=== PATIENT | male | born 1955 | race Caucasian/White ===

== ENCOUNTER 2017-12-18 19:50 | Emergency (ER) | payer BC ==
[2017-12-18 21:36] LABS: ABS Basophils 0.1 10^3/ul (0-0.2); ABS Eosinophils 0 10^3/ul (0-0.6); ABS Lymphocytes 1.3 10^3/ul (1.0-4.8); ABS Monocytes 0.5 10^3/ul (0-0.8); ABS Neutrophils 9.5 10^3/ul (1.5-7.7); ABS Nucleated RBC 0 10^3/ul; Eosinophil % 0.1 % (0-6); Hematocrit 43 % (42-52); Hemoglobin 14.5 g/dl (14.0-18.0); Lymphocyte % 11.2 % (25-47); Mean Corpuscular HGB Conc 34 g/dl (31-36); Mean Corpuscular Hemoglobin 29 pg (27-31); Mean Corpuscular Volume 85 fL (80-94); Mean Platelet Volume 6.6 um3 (7.4-10.4); Nucleated Red Blood Cells % 0; Platelet Count 285 10^3/ul (150-450); Red Blood Count 5.04 10^6/ul (4.0-5.4); Red Cell Distribution Width 13 % (10.5-15); White Blood Count 11.3 10^3/ul (3.5-10.8)
--- NOTE | 2017-12-18 21:48 | RAD ---
INDICATION: Chest pain COMPARISON: None 32,011 TECHNIQUE: An AP portable view obtained at 2130 hours is submitted. FINDINGS: Bones/Soft Tissues: There are no acute bony findings. Cardiomediastinal: The cardiomediastinal silhouette is normal. Lungs: There are no infiltrates. Pleura: There are no pleural effusions. Other: None IMPRESSION: NO ACTIVE DISEASE.
[2017-12-18 21:49] LABS: INR 0.93 (0.77-1.02)
[2017-12-18 21:51] LABS: EGFR Non-African American 81.1 (>60)
[2017-12-18 23:14] VITALS: BP 126/78
--- NOTE | 2017-12-19 03:00 | ED ---
Jon Khan Julia, scribed for Donna Joyce MD on 12/18/17 at 2121 . HPI Chest Pain - HPI Summary HPI Summary: This patient is a 62 year old M BIBA to [facility] with a chief complaint of sudden sharp left anterior chest pain lasting roughly 10 minutes at 18:30 while " moving around". Patient states this pain has been intermittently occurring for the past year but is less significant than recent pain. Pain is currently resolved and patient has no other complaints or symptoms at this time. - History of Current Complaint Chief Complaint: EDChestPainROMI Time Seen by Provider: 12/18/17 21:02 Hx Obtained From: Patient Onset/Duration: Started Hours Ago, Resolved Time of Onset: 18:30 Timing: Lasting Minutes Current Severity: None Pain Intensity: 0 Pain Scale Used: 0-10 Numeric Chest Pain Location: Left Anterior Chest Pain Radiates: No Aggravating Factor(s): Nothing Alleviating Factor(s): Nothing Associated Signs and Symptoms: Positive: Negative - Allergy/Home Medications Allergies/Adverse Reactions: Allergies Allergy/AdvReac Type Severity Reaction Status Date / Time hydrocodone Allergy Vomiting Verified 12/18/17 19:53 loratadine [From Claritin] Allergy Diffculty Verified 12/18/17 20:01 Urinating oxycodone Allergy Vomiting Verified 12/18/17 19:53 Home Medications: Home Medications Garlic 1 each PO DAILY 12/18/17 [History Confirmed 12/18/17] Melatonin/Pyridoxine HCl (B6) [Melatonin] 1 tab PO BEDTIME PRN 12/18/17 [ History Confirmed 12/18/17] PMH/Surg Hx/FS Hx/Imm Hx Cardiovascular History: Reports: Hx Hypertension - ON MEDS Denies: Other Cardiovascular Problems/Disorders Respiratory History: Denies: Other Respiratory Problems/Disorders GI History: Denies: Other GI Disorders History: Denies: Other Problems/Disorders Musculoskeletal History: Reports: Hx Arthritis - LEFT HIP Denies: Other Musculoskeletal History Sensory History: Reports: Hx Contacts or Glasses - GLASSES Denies: Hx Hearing Aid Opthamlomology History: Reports: Hx Contacts or Glasses - GLASSES Neurological History: Denies: Other Neuro Impairments/Disorders - Cancer History Cancer Type, Location and Year: 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 HERNIA RIGHT TESTICLE, [facility]. INFUSAPORT PLACED, 2005,[facility]. RIGHT SHOULDER, 1992. RIGHT ANKLE 1974. LEFT QUADROCEP, 1977 Hx Anesthesia Reactions: No Infectious Disease History: No Infectious Disease History: Denies: Traveled Outside the [place] in Last 30 Days - Family History Known Family History: Positive: Hypertension - Social History Alcohol Use: None Substance Use Type: Reports: None Smoking Status (MU): Never Smoked Tobacco Review of Systems Constitutional: Negative Positive: Chest Pain Respiratory: Negative All Other Systems Reviewed And Are Negative: Yes Physical Exam - Summary Physical Exam Summary: VITAL SIGNS: Reviewed. GENERAL: Patient is a well-developed and nourished male who is lying comfortable in the stretcher. Patient is not in any acute respiratory distress. HEAD AND FACE: No signs of trauma. No ecchymosis, hematomas or skull depressions. No sinus tenderness. EYES: PERRLA, EOMI x 2, No injected conjunctiva, no nystagmus. EARS: Hearing grossly intact. Ear canals and tympanic membranes are within normal limits. MOUTH: Oropharynx within normal limits. NECK: Supple, trachea is midline, no adenopathy, no JVD, no carotid bruit, no c- spine tenderness, neck with full ROM. CHEST: Symmetric, no tenderness at palpation LUNGS: Clear to auscultation bilaterally. No wheezing or crackles. CVS: Regular rate and rhythm, S1 and S2 present, no murmurs or gallops appreciated. ABDOMEN: Soft, non-tender. No signs of distention. No rebound no guarding, and no masses palpated. Bowel sounds are normal. EXTREMITIES: FROM in all major joints, no edema, no cyanosis or clubbing. NEURO: Alert and oriented x 3. No acute neurological deficits. Speech is normal and follows commands. SKIN: Dry and warm Triage Information Reviewed: Yes Vital Signs On Initial Exam: Initial Vitals Temp Pulse Resp BP Pulse Ox 99.5 F 68 17 151/86 95 12/18/17 19:51 12/18/17 19:51 12/18/17 19:51 12/18/17 19:51 12/18/17 19:51 Vital Signs Reviewed: Yes Diagnostics - Vital Signs Vital Signs Temp Pulse Resp BP Pulse Ox 12/18/17 20:00 66 16 95 12/18/17 19:52 71 15 151/86 96 12/18/17 19:51 99.5 F 68 17 151/86 95 - Laboratory Result Diagrams: 12/18/17 21:17 12/18/17 21:17 Lab Statement: Any lab studies that have been ordered have been reviewed, and results considered in the medical decision making process. - Radiology CXR Radiology Interpretation Completed By: Radiologist - NO ACTIVE DISEASE. Dr. Joyce has reviewed this report. - EKG 21:32 Cardiac Rate: NL EKG Rhythm: Sinus Rhythm - at 66 Bpm EKG Interpretation: Normal axis. Normal interval. No ischemic changes Chest Pain Course/Dx - Course Course Of Treatment: 62 year old M BIBA to [facility] with a chief complaint of sudden sharp left anterior chest pain lasting roughly 10 minutes at 18:30 while "moving around". Pain is currently resolved and patient has no other complaints or symptoms at this time. EKG and CXR are negative for acute pathology. Bloodwork is unremarkable. Results discussed with patient. Patient is discharged and instructed to follow up with his PCP. Patient is agreeable with this plan. - Diagnoses Provider Diagnoses: Atypical chest pain Discharge - Sign-Out/Discharge Documenting (check all that apply): Discharge/Admit/Transfer - Discharge Plan Condition: Stable Disposition: HOME Patient Education Materials: Chest Pain (ED) Referrals: Ryan Landry MD [Primary Care Provider] - 1 Week (Follow up with your primary care physician regarding your symptoms today. ) Additional Instructions: RETURN TO EMERGENCY DEPARTMENT FOR ANY NEW OR WORSENING SYMPTOMS The documentation as recorded by the Jon boyd Julia accurately reflects the service I personally performed and the decisions made by , Donna Joyce MD.
== END 2017-12-18 23:14 | disposition home or self-care (01) ==
LOC: ED 19:50
DX: R07.89 Other chest pain (principal); I10 Essential (primary) hypertension; M16.12 Unilateral primary osteoarthritis, left hip; Z85.828 Personal history of other malignant neoplasm of skin; Z88.5 Allergy status to narcotic agent; Z88.8 Allergy status to other drugs, medicaments and biological substances
CPT/HCPCS: 36415; 71045; 80053; 82550; 83605; 83735; 84484; 85025; 85610; 85730; 93005; 99283

== ENCOUNTER 2019-07-29 08:49 | Emergency (ER) | payer BC ==
[2019-07-29] MEDS ORDERED: NS 0.9% 1000 ML** 1,000 ML IV ONE (09:05)
[2019-07-29] MEDS ORDERED: LORazepam TAB(*) 0.5 MG PO ONE (09:19)
[2019-07-29 09:30] LABS: ABS Basophils 0.1 10^3/ul (0-0.2); ABS Lymphocytes 1.4 10^3/ul (1.0-4.8); ABS Monocytes 0.6 10^3/ul (0-0.8); ABS Neutrophils 4.9 10^3/ul (1.5-7.7); Eosinophil % 0.2 %; Hematocrit 47 % (42-52); Lymphocyte % 20.3 %; Mean Corpuscular HGB Conc 34 g/dL (31-36); Mean Corpuscular Hemoglobin 30 pg (27-31); Mean Corpuscular Volume 86 fL (80-94); Mean Platelet Volume 6.4 fL (7.4-10.4); Platelet Count 304 10^3/uL (150-450); Red Blood Count 5.44 10^6 /uL (4.18-5.48); Red Cell Distribution Width 14 % (10-15)
--- NOTE | 2019-07-29 09:39 | ED ---
Complex/Multi-Sys Presentation - HPI Summary HPI Summary: Patient is a 63 y/o M presenting to [facility] for a chief complaint of tremors and chills. Patient is present with a friend. The initial onset of his symptoms began approximately one month ago when the patient began taking buspirone for a PMHx of anxiety. He states he is unsure when to take his anxiety medications or the dosage he needs to take daily. He also reports being seen by his PCP, Dr. Landry, who increased his hydrochlorothiazide from 12.5 mg to 25 mg daily after having an elevated blood pressure during his visit. Patient believes his anxiety medications are interacting with his hypertension medication and elevating his blood pressure. At that time, Dr. Landry also recommended the patient start an antidepressant, which the patient declined. The patient attributes his chills and tremors to buspirone. He notes that he gets chills and tremors after exertion which he states is similar to when he had cancer. Insomnia for a "long time" and anxiety is also noted by the patient. Patient denies fever, urinary burning, chest pain, cough, or shortness of breath. Patient also takes 0.4 mg Flomax and lisinopril. 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 PMHx is significant for hypertension and myeloma with a history of chemotherapy treatment 14 years ago. - History Of Current Complaint Chief Complaint: EDGeneral Time Seen by Provider: 07/29/19 09:04 Hx Obtained From: Patient Onset/Duration: Sudden Onset, Still Present Timing: Constant Severity Currently: Moderate Severity Initially: Moderate Associated Signs And Symptoms: Positive: Other - Positive tremors, chills, insomnia, and anxiety. Negative: SOB, Cough, Chest Pain, Dysuria - Urinary burning, Fever - Allergies/Home Medications Allergies/Adverse Reactions: Allergies Allergy/AdvReac Type Severity Reaction Status Date / Time hydrocodone Allergy Vomiting Verified 07/29/19 08:54 loratadine [From Claritin] Allergy Diffculty Verified 07/29/19 08:54 Urinating oxycodone Allergy Vomiting Verified 07/29/19 08:54 PMH/Surg Hx/FS Hx/Imm Hx Previously Healthy: Yes Endocrine/Hematology History: Denies: Hx Diabetes Cardiovascular History: Reports: Hx Hypertension - ON MEDS Denies: Other Cardiovascular Problems/Disorders Respiratory History: Denies: Other Respiratory Problems/Disorders GI History: Denies: Other GI Disorders History: Denies: Other Problems/Disorders Musculoskeletal History: Reports: Hx Arthritis - LEFT HIP Denies: Other Musculoskeletal History Sensory History: Reports: Hx Contacts or Glasses - GLASSES Denies: Hx Legally Blind, Hx Deafness, Hx Hearing Aid Opthamlomology History: Reports: Hx Contacts or Glasses - GLASSES Denies: Hx Legally Blind EENT History: Denies: Hx Deafness Neurological History: Denies: Other Neuro Impairments/Disorders Psychiatric History: Reports: Hx Anxiety, Hx Substance Abuse - Alcohol, sober for 32 years - Cancer History Cancer Type, Location and Year: 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 HERNIA RIGHT TESTICLE, [facility]. INFUSAPORT PLACED, 2004,[facility]. RIGHT SHOULDER, 1992. RIGHT ANKLE 1973. LEFT QUADROCEP, 1977 Hx Anesthesia Reactions: No Infectious Disease History: No Infectious Disease History: Denies: Traveled Outside the [place] in Last 30 Days - Family History Known Family History: Positive: Hypertension - Social History Occupation: Retired Alcohol Use: None Alcohol Amount: Sober for 32 years Hx Substance Use: No Substance Use Type: Reports: None Hx Tobacco Use: No Smoking Status (MU): Never Smoked Tobacco Review of Systems Positive: Chills. Negative: Fever Negative: Chest Pain Negative: Shortness Of Breath, Cough Neurological: Other - Positive tremors Psychological: Other - Positive insomnia Positive: Anxious All Other Systems Reviewed And Are Negative: Yes Physical Exam - Summary Physical Exam Summary: VITAL SIGNS: Reviewed. GENERAL: Patient is a well-developed and nourished MALE who is lying comfortable in the stretcher. Patient is not in any acute respiratory distress. Patient is anxious. HEAD AND FACE: No signs of trauma. No ecchymosis, hematomas or skull depressions. No sinus tenderness.. EYES: PERRLA, EOMI x 2, No injected conjunctiva, no nystagmus. EARS: Hearing grossly intact. Ear canals and tympanic membranes are within normal limits. MOUTH: Oropharynx within normal limits. NECK: Supple, trachea is midline, no adenopathy, no JVD, no carotid bruit, no c- spine tenderness, neck with full ROM. CHEST: Symmetric, no tenderness at palpation. LUNGS: Clear to auscultation bilaterally. No wheezing or crackles. CVS: Regular rate and rhythm, S1 and S2 present, no murmurs or gallops appreciated. ABDOMEN: Soft, non-tender. No signs of distention. No rebound, no guarding, and no masses palpated. Bowel sounds are normal. EXTREMITIES: FROM in all major joints, no edema, no cyanosis or clubbing. NEURO: Alert and oriented x 3. No acute neurological deficits. Speech is normal and follows commands. SKIN: Dry and warm. Triage Information Reviewed: Yes Vital Signs On Initial Exam: Initial Vitals Temp Pulse Resp BP Pulse Ox 99.2 F 84 16 175/106 96 07/29/19 08:51 07/29/19 08:51 07/29/19 08:51 07/29/19 08:51 07/29/19 08:51 Vital Signs Reviewed: Yes Procedures - Sedation Patient Received Moderate/Deep Sedation with Procedure: No Diagnostics - Vital Signs Vital Signs Temp Pulse Resp BP Pulse Ox 07/29/19 08:51 99.2 F 84 16 175/106 96 - Laboratory Result Diagrams: 07/29/19 09:16 07/29/19 09:16 Lab Statement: Any lab studies that have been ordered have been reviewed, and results considered in the medical decision making process. - Radiology Chest X-ray Radiology Interpretation Completed By: Radiologist Summary of Radiographic Findings: Chest X-ray IMPRESSION: NO ACTIVE CARDIOPULMONARY DISEASE IS NOTED. Reviewed by Dr. Ramirez. Re-Evaluation - Re-Evaluation First Eval Re-Evaluation Time: 11:50 Change: Improved Comment: At 11:50, patient is feeling better after being given Ativan. Complex Multi-Symp Course/Dx Assessment/Plan: Patient is a 63 y/o M presenting to [facility] for a chief complaint of tremors and chills. Patient is present with a friend. The initial onset of his symptoms began approximately one month ago when the patient began taking buspirone for a PMHx of anxiety. He states he is unsure when to take his anxiety medications or the dosage he needs to take daily. He also reports being seen by his PCP, Dr. Landry, who increased his hydrochlorothiazide from 12.5 mg to 25 mg daily after having an elevated blood pressure during his visit. Patient believes his anxiety medications are interacting with his hypertension medication and elevating his blood pressure. At that time, Dr. Landry also recommended the patient start an antidepressant, which the patient declined. The patient attributes his chills and tremors to buspirone. He notes that he gets chills and tremors after exertion which he states is similar to when he had cancer. Insomnia for a "long time" and anxiety is also noted by the patient. Patient denies fever, urinary burning, chest pain, cough, or shortness of breath. Patient also takes 0.4 mg Flomax and lisinopril. 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 PMHx is significant for hypertension and myeloma with a history of chemotherapy treatment 14 years ago. Blood work is without any significant abnormality except for sodium 134, glucose 121, total bilirubin 1.3. Chest x-ray shows no acute pathology. In the ED course, the patient was given Ativan for anxiety. After these medications the patients symptoms have significantly improved. Patient is hemodynamically stable, and alert and oriented 3. - Diagnoses Provider Diagnoses: Anxiety, Blood pressure alteration Discharge ED - Sign-Out/Discharge Documenting (check all that apply): Patient Departure - Discharge - Discharge Plan Condition: Stable Disposition: HOME Patient Education Materials: Anxiety (ED) Referrals: Ryan Landry MD [Primary Care Provider] - Additional Instructions: FOLLOW UP WITH YOUR PRIMARY CARE PROVIDER WITHIN 3 DAYS. RETURN TO THE EMERGENCY DEPARTMENT FOR ANY WORSENING OR NEW SYMPTOMS. - Billing Disposition and Condition Condition: STABLE Disposition: Home - Attestation Statements Document Initiated by Reena: Yes Documenting Scribe: Susy Alvarado Provider For Whom Reena is Documenting (Include Credential): Adolfo Ramirez MD Scribe Attestation: Susy Khan scribed for Adolfo Ramirez MD on 07/29/19 at 1820. Scribe Documentation Reviewed: Yes Provider Attestation: The documentation as recorded by the Susy boyd accurately reflects the service I personally performed and the decisions made by me, Adolfo Ramirez MD Status of Scribe Document: Viewed
[2019-07-29 09:46] LABS: ALT 25 U/L (7-52); AST 18 U/L (13-39); Albumin 4.2 g/dL (3.2-5.2); Albumin/Globulin Ratio 1.3 (1-3); Alkaline Phosphatase 83 U/L (34-104); Anion Gap 8 mmol/L (2-11); BUN/Creatinine Ratio 15.4 (8-20); Blood Urea Nitrogen 14 mg/dL (6-24); C Reactive Protein < 1.00 mg/L (<8.01); CO2 Carbon Dioxide 24 mmol/L (22-32); Calcium 9.2 mg/dL (8.6-10.3); Chloride 102 mmol/L (101-111); Creatine Kinase 74 U/L (10-223); EGFR African American 101.5 (>60); EGFR Non-African American 83.9 (>60); Globulin 3.2 g/dL (2-4); Glucose 121 mg/dL (70-100); Potassium 3.6 mmol/L (3.5-5.0); Sodium 134 mmol/L (135-145); Total Protein 7.4 g/dL (6.4-8.9)
[2019-07-29 11:54] LABS: Urine Appearance Cloudy; Urine Bilirubin Negative (Negative); Urine Blood Negative (Negative); Urine Color Yellow; Urine Glucose Negative (Negative); Urine Ketones Negative (Negative); Urine Nitrite Negative (Negative); Urine Protein Negative (Negative); Urine Urobilinogen Negative (Negative)
[2019-07-29 12:09] VITALS: BP 131/81
== END 2019-07-29 12:08 | disposition home or self-care (01) ==
LOC: ED 08:49
DX: F41.9 Anxiety disorder, unspecified (principal); I10 Essential (primary) hypertension; Z85.828 Personal history of other malignant neoplasm of skin; Z79.899 Other long term (current) drug therapy; Z88.5 Allergy status to narcotic agent; Z88.8 Allergy status to other drugs, medicaments and biological substances
CPT/HCPCS: 36415; 71045; 80053; 81003; 82550; 83605; 83690; 83880; 85025; 85730; 86140; 87040; 99282; A9270-GY

== ENCOUNTER 2021-12-10 06:45 | Observation (INO) ==
[~2021-12-10 06:45] MED LIST: Buffered Lidocaine 1% SYRIN 1 ml INTRADERM ONE; HYDROcodone/ACETAMIN 5/325 mg TAB PO PRN; Lactated Ringers 1000 ml BAG 1,000 ML IV SCH; Metoclopramide 5 MG/ML VIAL (10 mg) IV PRN; Naloxone 0.4 mg VIAL 0.4 mg/ml 1 ml VIAL IV PRN; Ondansetron 4 mg VIAL 2 MG/ML 2 ml VIAL IV PRN; fentaNYL 100 mcg/2 ml 50 MCG/ML VIAL IV PRN
[2021-12-10] MEDS ORDERED: ceFAZolin 2 GM PREMIX 2 GM/50 ML BAG ONE (07:07)
[2021-12-10] MEDS ORDERED: fentaNYL 100 mcg/2 ml 50 MCG/ML VIAL ONE (07:59)
[2021-12-10] MEDS ORDERED: Midazolam 2 mg/2 ml VIAL 1 mg/ml 2 ml VIAL (2 mg) ONE (07:59)
[2021-12-10] MEDS ORDERED: ROPIVACAINE 5 MG/ML 30 ML BTL (0.5%) ONE ×2 (07:59→08:39)
[2021-12-10] MEDS ORDERED: Dexamethasone IV 4 MG/ML VIAL 1 ml VIAL ONE (08:00)
[2021-12-10] MEDS ORDERED: Propofol 0 MG/0 ML BTL ONE (08:16)
[2021-12-10] MEDS ORDERED: Magnesium Hydroxide LIQ 30 ML UDC PO PRN (10:31)
[2021-12-10] MEDS ORDERED: Morphine 2 MG/ML SYRINGE IV PRN (10:31)
[2021-12-10] MEDS ORDERED: Lactulose 30 ml UDC PO PRN (10:31)
[2021-12-10] MEDS ORDERED: Ondansetron ODT 4 mg TAB 4 MG TAB PO PRN (10:31)
[2021-12-10] MEDS ORDERED: Ondansetron 4 mg VIAL 2 MG/ML 2 ml VIAL IV PRN (10:31)
[2021-12-10] MEDS ORDERED: EPHEDrine (Pressors) 50 MG/ML VIAL ONE (10:39)
[2021-12-10] MEDS ORDERED: Propofol 10 MG/ML 20 ML BTL ONE (10:56)
[2021-12-10] MEDS ORDERED: Lactated Ringers 1000 ml BAG 1,000 ML IV SCH (11:00)
[2021-12-10] MEDS: ceFAZolin 1 GM ADVAN 1 GM in NS 0.9% 50 ML 50 ML IVPB SCH (18:03)
[2021-12-10] MEDS: Magnesium Hydroxide LIQ 30 ML UDC PO SCH (20:38)
[2021-12-10] MEDS ORDERED: CMCS:Pravastatin 20 mg TAB (NF) PO SCH (21:00)
[2021-12-11] MEDS: ceFAZolin 1 GM ADVAN 1 GM in NS 0.9% 50 ML 50 ML IVPB SCH ×2 (02:54→09:42)
[2021-12-11 06:34] LABS: Hematocrit 40 % (42-52); Hemoglobin 13.3 g/dL (14.0-18.0); Mean Platelet Volume 6.7 fL (7.4-10.4); Platelet Count 252 10^3/uL (150-450)
[2021-12-11 07:24] VITALS: BP 117/66
[2021-12-11 07:25] LABS: Potassium 4.4 mmol/L (3.5-5.0); eGFR CKD-EPI 94.2 (>60)
[2021-12-11] MEDS ORDERED: Vitamin THERAPEUTIC TAB PO SCH (09:00)
[2021-12-11] MEDS: Magnesium Hydroxide LIQ 30 ML UDC PO SCH (09:43)
== END 2021-12-11 11:05 | disposition home or self-care (01) ==
LOC: SSU → INTOOBSV 06:45 → AA 06:45
PROVIDERS: ADMIT Orthopaedic Surgery Adult Reconstructive Orthopaedic Surgery; ATTEND Orthopaedic Surgery Adult Reconstructive Orthopaedic Surgery

== ENCOUNTER 2023-09-16 05:33 | Observation (INO) ==
[~2023-09-16 05:33] MED LIST changes: -Buffered Lidocaine 1% SYRIN 1 ml INTRADERM ONE; -HYDROcodone/ACETAMIN 5/325 mg TAB PO PRN; -Lactated Ringers 1000 ml BAG 1,000 ML IV SCH; +NS 0.45% 1000 ml BAG 1,000 ML IV SCH
[2023-09-16] MEDS ORDERED: Tranexamic Acid 1 GM/100ML BAG 2,000 MG/200 ML BAG IV ONE (05:53)
[2023-09-16] MEDS ORDERED: ceFAZolin 2 GM in NS PREMIX 2 GM/100 ML BAG IVPB ONE (05:53)
[2023-09-16 06:13] LABS: Rapid COVID-19 Molecular Undetected (Undetected)
[2023-09-16] MEDS ORDERED: ROPIVACAINE 5 MG/ML 30 ML BTL (0.5%) ONE (07:10)
[2023-09-16] MEDS ORDERED: Midazolam 2 mg/2 ml VIAL 1 mg/ml 2 ml VIAL (2 mg) ONE (07:35)
[2023-09-16] MEDS ORDERED: fentaNYL 250 mcg/5 ml 50 MCG/ML 5 ml VIAL (250 MCG) ONE ×2 (07:35→08:21)
[2023-09-16] MEDS ORDERED: Ondansetron 4 mg VIAL 2 MG/ML 2 ml VIAL ONE (08:20)
[2023-09-16] MEDS ORDERED: Lidocaine 2% PF 5 ML VIAL ONE (08:20)
[2023-09-16] MEDS ORDERED: Dexamethasone IV 4 MG/ML VIAL 1 ml VIAL ONE (08:20)
[2023-09-16] MEDS ORDERED: Propofol 10 MG/ML 20 ML BTL ONE (08:20)
[2023-09-16] MEDS ORDERED: Phenylephrine 40 mcg/mL 10mL (400mcg) SYRINGE ONE (08:21)
[2023-09-16] MEDS ORDERED: Morphine 2 MG/ML SYRINGE IV PRN (10:23)
[2023-09-16] MEDS ORDERED: Ondansetron ODT 4 mg TAB 4 MG TAB PO PRN (10:23)
[2023-09-16] MEDS ORDERED: Magnesium Hydroxide LIQ 30 ML UDC PO PRN (10:23)
[2023-09-16] MEDS ORDERED: Lactulose 30 ml UDC PO PRN (10:23)
[2023-09-16] MEDS: Scopolamine 1 mg/72hr PATCH TRANSDERM ONE (10:45)
[2023-09-16] MEDS: Acetaminophen IV 1 GM/100ML 1,000 MG/100 ML BAG IV ONE (10:45)
[2023-09-16] MEDS: Buffered Lidocaine 1% SYRIN 1 ml INTRADERM ONE (10:45)
[2023-09-16] MEDS: Lactated Ringers 1000 ml BAG 1,000 ML IV SCH ×2 (10:46→11:24)
[2023-09-16] MEDS: ceFAZolin 1 GM ADVAN 1 GM in NS 0.9% 50 ML 50 ML IVPB SCH (15:55)
[2023-09-16] MEDS: Ondansetron 4 mg VIAL 2 MG/ML 2 ml VIAL IV PRN (16:00)
[2023-09-16] MEDS: Magnesium Hydroxide LIQ 30 ML UDC PO SCH (21:48)
[2023-09-17 06:08] LABS: Hematocrit 33.4 % (38-53); Hemoglobin 11.2 g/dL (13.2-16.3); Mean Platelet Volume 6.5 fL (7.5-11.2); Platelet Count 272 10^3/uL (150-450)
[2023-09-17 06:26] LABS: Calcium 8.7 mg/dL (8.6-10.3); Creatinine, Serum 0.75 mg/dL (0.67-1.17); Potassium 3.8 mmol/L (3.5-5.0); eGFR CKD-EPI 98.3 (>60)
[2023-09-17] MEDS: Vitamin THERAPEUTIC TAB PO SCH (07:50)
[2023-09-17 10:01] VITALS: BP 135/72
== END 2023-09-17 11:25 | disposition home or self-care (01) ==
LOC: SSU 05:33 → OR 05:33
PROVIDERS: ADMIT Orthopaedic Surgery Adult Reconstructive Orthopaedic Surgery; ATTEND Orthopaedic Surgery Adult Reconstructive Orthopaedic Surgery